=== PATIENT | female | born 1990 | race Two or more races ===

== ENCOUNTER 2019-02-03 03:12 | Emergency (ER) | payer OTHER ==
[~2019-02-03] VITALS: Ht 157.5 cm; Wt 49.0 kg
[2019-02-03 03:17] VITALS: BP 111/73
== END 2019-02-03 06:46 | disposition left against medical advice (07) ==
LOC: ER 05:44
DX: Z53.21 Procedure and treatment not carried out due to patient leaving prior to being seen by health care provider (principal)